=== PATIENT | female | born 1965 | race Caucasian/White ===

== ENCOUNTER 2016-11-05 14:42 | Emergency (ER) | payer BC ==
[~2016-11-05] VITALS: Ht 160 cm; Wt 104.7 kg
[~2016-11-05 14:42] MED LIST: AUGMENTIN500 MG PO; NORCO 5/3251 TABLET PO
[2016-11-05 19:14] VITALS: BP 162/110
== END 2016-11-05 19:15 | disposition home or self-care (01) ==
LOC: EME 14:42
DX: R22.42 Localized swelling, mass and lump, left lower limb (principal); Z86.718 Personal history of other venous thrombosis and embolism
CPT/HCPCS: 93971; 99281; 99283